=== PATIENT | female | born 1985 | race Caucasian/White ===

== ENCOUNTER → 2016-11-16 | Outpatient (CLI) | payer OTHER ==
[2016-11-16 12:19] LABS: Basophils % (A) 0 %; CH 33.4; CHCM 33.7; Eosinophils # (A) 0.2 k/uL (0-0.7); Eosinophils % (A) 2 %; HCT 31.7 % (34.0-46.0); HDW 2.53; HGB 10.7 gm/dL (11.4-16.0); Luc # (Auto) 0.09; Luc % (Auto) 1; Lymphocytes # (A) 1.4 k/uL (1.0-4.8); Lymphocytes % (A) 12 %; MCH 33.5 pg (25.0-35.0); MCHC 33.7 g/dL (31.0-37.0); MCV 99.6 fL (80.0-100.0); Mean Platelet Volume 8.6; Monocytes # (A) 0.7 k/uL (0-1.0); Monocytes % (A) 6 %; Neutrophils # (A) 9.1 k/uL (1.3-7.7); Neutrophils % (A) 79 %; RBC 3.18 m/uL (3.80-5.40); RDW 12.9 % (11.5-15.5); WBC 11.6 k/uL (3.8-10.6); WBC (Perox) 12.29
[2016-11-17 07:22] LABS: HIV-1/HIV-2 Ab Screen NONREAC (NON REAC)
== END | disposition home or self-care (01) ==
LOC: LABWHC1 10:16
PROVIDERS: ATTEND Midwife
DX: Z36 Encounter for antenatal screening of mother (principal)
CPT/HCPCS: 36415; 82950; 85025; 86780; 87389

== ENCOUNTER 2016-12-03 19:27 | Outpatient (CLI) | payer OTHER ==
[2016-12-03] MEDS ORDERED: ONDANSETRON 4 MG/2 ML VIAL IVP STA (20:15)
[2016-12-03] MEDS: LACTATED RINGERS 1,000 ML IV SCH ×2 (20:30→21:19)
[2016-12-03 20:34] LABS: Appearance,Urine Cloudy (Clear); Bacteria,Urine Rare /hpf; Bilirubin,Urine 1+ (Negative); Glucose,Urine (UA) Negative (Negative); Ketones,Urine 3+ (Negative); Leukocyte Esterase,Urine Moderate (Negative); Mucus,Urine Many /hpf; Nitrite,Urine Negative (Negative); Particle Count 19169; Protein,Urine 2+ (Negative); RBC,Urine 18 /hpf (0-5); Specific Gravity,Urine 1.024 (1.001-1.035); Squamous Epithelial Cell,Urine 17 /hpf (0-4); UA Billing (MACRO vs. MICRO) MICRO; WBC,Urine 28 /hpf (0-5)
== END 2016-12-03 22:00 | disposition home or self-care (01) ==
LOC: FBPOP 19:27
PROVIDERS: ATTEND Obstetrics & Gynecology
DX: O99.89 Other specified diseases and conditions complicating pregnancy, childbirth and the puerperium (principal); R19.7 Diarrhea, unspecified; R11.2 Nausea with vomiting, unspecified; Z3A.30 30 weeks gestation of pregnancy
CPT/HCPCS: 59025; 96360; 96361; 96375; 81001; G0463; J2405; 99214

== ENCOUNTER 2017-02-13 10:46 | Emergency (ER) | payer OTHER ==
[2017-02-13] MEDS ORDERED: SODIUM CHLORIDE 0.9% 500 ML IV ONE (11:03)
--- NOTE | 2017-02-13 11:21 | ED ---
General Adult HPI - General Chief complaint: Vaginal Bleeding Stated complaint: passing clots, post preg Time Seen by Provider: 02/13/17 10:52 Source: patient, RN notes reviewed, old records reviewed Mode of arrival: ambulatory Limitations: no limitations - History of Present Illness Initial comments: This is a 31-year-old female here for evaluation of bleeding. Vaginal bleeding. Patient is a with vaginal delivery less than a week. Patient states she did pass a large blood clot today. No tissue. Patient otherwise has no pain no cramping or feelings of lightheadedness dizziness or weakness. No complications from . - Related Data Home Medications Medication Instructions Recorded Confirmed Vit#84/Iron/FA#1/Dha 1 each PO DAILY 12/03/16 02/13/17 [Prenate Essential Softgel] Ranitidine HCl [Zantac] 150 mg PO BID 12/03/16 02/13/17 Calcium Carbonate [Tums] 500 mg PO QID 01/15/17 02/13/17 Ibuprofen [Motrin] 600 mg PO Q6HR PRN 02/13/17 02/13/17 Allergies Allergy/AdvReac Type Severity Reaction Status Date / Time No Known Allergies Allergy Verified 02/13/17 10:56 Review of Systems ROS Statement: Those systems with pertinent positive or pertinent negative responses have been documented in the HPI. ROS Other: All systems not noted in ROS Statement are negative. Past Medical History Past Medical History: No Reported History History of Any Multi-Drug Resistant Organisms: None Reported Past Surgical History: No Surgical Hx Reported Past Psychological History: No Psychological Hx Reported Smoking Status: Current every day smoker Past Alcohol Use History: None Reported Past Drug Use History: None Reported General Exam Limitations: no limitations General appearance: alert, in no apparent distress Head exam: Present: atraumatic, normocephalic, normal inspection Eye exam: Present: normal appearance, PERRL, EOMI. Absent: scleral icterus, conjunctival injection, periorbital swelling ENT exam: Present: normal exam, mucous membranes moist Neck exam: Present: normal inspection. Absent: tenderness, meningismus, lymphadenopathy Respiratory exam: Present: normal lung sounds bilaterally. Absent: respiratory distress, wheezes, rales, rhonchi, stridor Cardiovascular Exam: Present: regular rate, normal rhythm, normal heart sounds. Absent: systolic murmur, diastolic murmur, rubs, gallop, clicks GI/Abdominal exam: Present: soft, normal bowel sounds. Absent: distended, tenderness, guarding, rebound, rigid Extremities exam: Present: normal inspection, full ROM, normal capillary refill. Absent: tenderness, pedal edema, joint swelling, calf tenderness Back exam: Present: normal inspection Neurological exam: Present: alert, oriented X3, CN II-XII intact Psychiatric exam: Present: normal affect, normal mood Skin exam: Present: warm, dry, intact, normal color. Absent: rash Course Vital Signs 02/13/17 02/13/17 10:54 12:12 Temperature 98.6 F Pulse Rate 101 H 84 Respiratory 16 16 Rate Blood Pressure 125/69 115/61 O2 Sat by Pulse 100 100 Oximetry - Reevaluation(s) Reevaluation #1: 02/13/17 12:28 Patient with no more passing of significant blood or blood clots, no weakness Medical Decision Making - Medical Decision Making 31 female here for evaluation. This patient presents for evaluation of passing blood clot, positive bleeding after , ultrasound is NEGATIVE FOR RETAINED PRODUCTS, HEMOGLOBIN NORMAL. PATIENT'S VITAL SIGNS ARE NORMAL AND STABLE, NOT SYMPTOMATICALLY BE DISCHARGED HOME - Lab Data Result diagrams: 02/13/17 11:30 02/13/17 11:30 Lab Results 02/13/17 02/13/17 02/13/17 Range/Units 11:30 11:30 11:30 WBC 15.5 H (3.8-10.6) k/uL RBC 3.48 L (3.80-5.40) m/uL Hgb 11.6 (11.4-16.0) gm/dL Hct 35.6 (34.0-46.0) % MCV 102.2 H (80.0-100.0) fL MCH 33.4 (25.0-35.0) pg MCHC 32.6 (31.0-37.0) g/dL RDW 14.2 (11.5-15.5) % Plt Count 327 (150-450) k/uL Neutrophils % 77 % Lymphocytes % 15 % Monocytes % 5 % Eosinophils % 2 % Basophils % 0 % Neutrophils # 11.9 H (1.3-7.7) k/uL Lymphocytes # 2.3 (1.0-4.8) k/uL Monocytes # 0.8 (0-1.0) k/uL Eosinophils # 0.2 (0-0.7) k/uL Basophils # 0.1 (0-0.2) k/uL Macrocytosis Slight Sodium 139 (137-145) mmol/L Potassium 4.6 (3.5-5.1) mmol/L Chloride 107 (98-107) mmol/L Carbon Dioxide 25 (22-30) mmol/L Anion Gap 7 mmol/L BUN 9 (7-17) mg/dL Creatinine 0.62 (0.52-1.04) mg/dL Est GFR (MDRD) Af Amer >60 (>60 ml/min/1.73 sqM) Est GFR (MDRD) Non-Af >60 (>60 ml/min/1.73 sqM) Glucose 85 (74-99) mg/dL Calcium 9.7 (8.4-10.2) mg/dL Total Bilirubin 0.5 (0.2-1.3) mg/dL AST 55 H (14-36) U/L ALT 53 H (9-52) U/L Alkaline Phosphatase 120 (38-126) U/L Total Protein 6.8 (6.3-8.2) g/dL Albumin 3.5 (3.5-5.0) g/dL Urine Color Yellow Urine Appearance Clear (Clear) Urine pH 7.5 (5.0-8.0) Ur Specific Lorton 1.008 (1.001-1.035) Urine Protein Negative (Negative) Urine Glucose (UA) Negative (Negative) Urine Ketones Negative (Negative) Urine Blood Large H (Negative) Urine Nitrite Negative (Negative) Urine Bilirubin Negative (Negative) Urine Urobilinogen <2.0 (<2.0) mg/dL Ur Leukocyte Esterase Small H (Negative) Urine RBC 68 H (0-5) /hpf Urine WBC 5 (0-5) /hpf Ur Squamous Epith Cells <1 (0-4) /hpf Urine Mucus Rare H (None) /hpf - Radiology Data Radiology results: report reviewed (Ultrasound negative for acute disease), image reviewed Disposition Clinical Impression: Menorrhagia, Excessive bleeding after vaginal delivery Disposition: HOME SELF-CARE Condition: Good Instructions: Bleeding (ED) Referrals: None,Stated [Primary Care Provider] - 1-2 days
[2017-02-13 11:46] LABS: Basophils # (A) 0.1 k/uL (0-0.2); Basophils % (A) 0 %; CH 34.5; Eosinophils # (A) 0.2 k/uL (0-0.7); Eosinophils % (A) 2 %; HCT 35.6 % (34.0-46.0); HDW 2.47; HGB 11.6 gm/dL (11.4-16.0); Luc # (Auto) 0.27; Luc % (Auto) 2; Lymphocytes # (A) 2.3 k/uL (1.0-4.8); Lymphocytes % (A) 15 %; MCH 33.4 pg (25.0-35.0); MCHC 32.6 g/dL (31.0-37.0); MCV 102.2 fL (80.0-100.0); Macrocytosis Slight; Mean Platelet Volume 7.7; Monocytes # (A) 0.8 k/uL (0-1.0); Monocytes % (A) 5 %; Neutrophils # (A) 11.9 k/uL (1.3-7.7); Neutrophils % (A) 77 %; RBC 3.48 m/uL (3.80-5.40); RDW 14.2 % (11.5-15.5); WBC 15.5 k/uL (3.8-10.6); WBC (Perox) 15.41
[2017-02-13 11:50] LABS: ALT 53 U/L (9-52); AST 55 U/L (14-36); Alkaline Phosphatase 120 U/L (38-126); Anion Gap 7 mmol/L; Blood Urea Nitrogen 9 mg/dL (7-17); Calcium 9.7 mg/dL (8.4-10.2); Carbon Dioxide 25 mmol/L (22-30); Chloride 107 mmol/L (98-107); Glucose 85 mg/dL (74-99); Non-African American GFR(MDRD) >60 (>60 ml/min/1.73 sqM); Potassium 4.6 mmol/L (3.5-5.1); Sodium 139 mmol/L (137-145); Total Bilirubin 0.5 mg/dL (0.2-1.3); Total Protein 6.8 g/dL (6.3-8.2)
[2017-02-13 11:54] LABS: Appearance,Urine Clear (Clear); Bilirubin,Urine Negative (Negative); Glucose,Urine (UA) Negative (Negative); Ketones,Urine Negative (Negative); Leukocyte Esterase,Urine Small (Negative); Mucus,Urine Rare /hpf; Nitrite,Urine Negative (Negative); PH, Urine 7.5 (5.0-8.0); Particle Count 920; Protein,Urine Negative (Negative); RBC,Urine 68 /hpf (0-5); Specific Gravity,Urine 1.008 (1.001-1.035); Squamous Epithelial Cell,Urine <1 /hpf (0-4); UA Billing (MACRO vs. MICRO) MICRO; Urobilinogen,Urine <2.0 mg/dL (<2.0); WBC,Urine 5 /hpf (0-5)
--- NOTE | 2017-02-13 12:21 | US ---
EXAMINATION TYPE: US pelvic complete DATE OF EXAM: 02/13/2017 12:08 PM COMPARISON: NONE CLINICAL HISTORY: retainedProducts. Vaginal bleeding since delivery, passed large blood clot today. V aginal bleeding 02/09/17 TECHNIQUE: Transabdominal (TA) Date of LMP: unknown EXAM MEASUREMENTS: Uterus: 14.9 x 6.5 x 11.7 cm Endometrial Stripe: cm Right Ovary: 3.0 x 2.0 x 1.9 cm Left Ovary: 3.2 x 1.8 x 1.6 cm 1. Uterus: Anteverted increased vascularity noted anteriorly . Uterine myometrium appears to be he terogenous. 2. Endometrium: appears thickened and heterogeneous, small amount of fluid noted within 3. Right Ovary: appears wnl 4. Left Ovary: appears wnl 5. Bilateral Adnexa: wnl 6. Posterior cul-de-sac: wnl IMPRESSION: Uterus is thickened and heterogenous with a small amount of endometrial fluid and hyperva scularity. Retained products of conception difficult to exclude. Correlate clinically.
[2017-02-13 12:33] LABS: INR 0.9 (<1.1); Prothrombin Time 9.4 sec (9.0-12.0)
[2017-02-13 12:40] VITALS: BP 124/73; PULSE 88; RESP 18; TEMP 97.8
[2017-02-13 12:47] LABS: Partial Thromboplastin Time 19.3 sec (22.0-30.0)
== END 2017-02-13 12:41 | disposition home or self-care (01) ==
LOC: EC 10:46
DX: O72.1 Other immediate postpartum hemorrhage (principal); F17.200 Nicotine dependence, unspecified, uncomplicated; Z79.899 Other long term (current) drug therapy
CPT/HCPCS: 36415; 76856; 80053; 81001; 85025; 85610; 85730; 86850; 86900; 86901; 96360; 99284

== ENCOUNTER → 2019-08-21 | Outpatient (CLI) | payer OTHER ==
[2019-08-21 16:17] LABS: Basophils # (A) 0.1 k/uL (0-0.2); Basophils % (A) 1 %; Eosinophils # (A) 0.2 k/uL (0-0.7); Eosinophils % (A) 2 %; HCT 43.7 % (34.0-46.0); HGB 14.3 gm/dL (11.4-16.0); Lymphocytes # (A) 3.3 k/uL (1.0-4.8); Lymphocytes % (A) 35 %; MCH 32.3 pg (25.0-35.0); MCHC 32.8 g/dL (31.0-37.0); MCV 98.6 fL (80.0-100.0); Mean Platelet Volume 6.5; Monocytes # (A) 0.6 k/uL (0-1.0); Monocytes % (A) 7 %; Neutrophils # (A) 5.1 k/uL (1.3-7.7); Neutrophils % (A) 53 %; Platelet Count 314 k/uL (150-450); RBC 4.43 m/uL (3.80-5.40); RDW 11.9 % (11.5-15.5); WBC 9.6 k/uL (3.8-10.6)
[2019-08-22 00:31] LABS: Follicle Stimulating Hormone 4.9 mIU/mL; Luteinizing Hormone 4.2 mIU/mL
== END | disposition home or self-care (01) ==
LOC: LABWHC1 14:49
PROVIDERS: ATTEND Midwife
DX: F39 Unspecified mood [affective] disorder (principal)
CPT/HCPCS: 36415; 82040; 83001; 83002; 84144; 84270; 84403; 84439; 84443; 85025

== ENCOUNTER → 2019-11-02 | Outpatient (CLI) | payer OTHER ==
--- NOTE | 2019-11-02 15:11 | CT ---
EXAMINATION TYPE: CT brain wo/w con DATE OF EXAM: 11/02/2019 COMPARISON: None HISTORY: Headaches and dizziness with multiple traumas over the past years CT DLP: 2072 mGycm Automated Exposure Control for Dose Reduction was Utilized. TECHNIQUE: CT scan of the head is performed with IV contrast.,CT scan of the head is performed withou t and with with IV Contrast, patient injected with 70 mL of Isovue 300. CLINICAL HISTORY: Dizziness and giddiness, headaches COMPARISON: None. FINDINGS: Noncontrast images show no acute intracranial hemorrhage or midline shift. The ventricles and sulci are within normal limits in size. Postcontrast images show no suspicious enhancing intrapa renchymal mass. The globes are intact and the visualized sinuses are clear. Small pineal gland cysts show some peripheral calcification and measures approximately 1 cm in greatest dimension IMPRESSION: Nonspecific findings above.
== END | disposition home or self-care (01) ==
LOC: RADCTMAIN 13:58
PROVIDERS: ATTEND Family Medicine
DX: R42 Dizziness and giddiness (principal)
CPT/HCPCS: 70470; Q9967

== ENCOUNTER 2019-11-27 07:41 | Day surgery (SDC) | payer OTHER ==
[2019-11-25 10:01] VITALS: BMI 31.1
[~2019-11-27 07:41] MED LIST: LACTATED RINGERS 1,000 ML IV SCH; LIDOCAINE 1% 20 ML VIAL (10MG/ML) FOR IV START INTRADERMA PRN
--- NOTE | 2019-11-27 08:01 | P.GSHP ---
History of Present Illness H&P Date: 11/27/19 CHIEF COMPLAINT: Colon screen HISTORY OF PRESENT ILLNESS: The patient is a 34-year-old female who presents for colon screen. Lower endoscopy was offered for further evaluation and management. PAST MEDICAL HISTORY: Please see list. PAST SURGICAL HISTORY: Please see list. MEDICATIONS: Please see list. ALLERGIES: Please see list. SOCIAL HISTORY: No illicit drug use FAMILY HISTORY: No reports of Crohn disease or ulcerative colitis. REVIEW OF ORGAN SYSTEMS: CONSTITUTIONAL: No reports of fevers or chills. PHYSICAL EXAM: VITAL SIGNS: Stable GENERAL: Well-developed pleasant in no acute distress. HEENT: No scleral icterus. Extraocular movements grossly intact. Moist buccal mucosa. NECK: Supple without lymphadenopathy. CHEST: Unlabored respirations. Equal bilateral excursions. CARDIOVASCULAR: Regular rate and rhythm. Distal 2+ pulses. ABDOMEN: Soft, nontender, nondistended. MUSCULOSKELETAL: No clubbing, cyanosis, or edema. ASSESSMENT: 1. Colon screen. PLAN: 1. Recommend proceeding with a lower endoscopy Past Medical History Past Medical History: GERD/Reflux Additional Past Medical History / Comment(s): chronic neck and back pain History of Any Multi-Drug Resistant Organisms: None Reported Past Surgical History: No Surgical Hx Reported Past Anesthesia/Blood Transfusion Reactions: No Reported Reaction Smoking Status: Current every day smoker - Past Family History Mother Family Medical History: Cancer Additional Family Medical History / Comment(s): colon Medications and Allergies Home Medications Medication Instructions Recorded Confirmed Type Loratadine [Claritin] 10 mg PO DAILY 11/25/19 11/25/19 History Omeprazole [PriLOSEC] 20 mg PO DAILY 11/25/19 11/25/19 History Varenicline [Chantix Continuing 1 mg PO DIRECTED 11/25/19 11/25/19 History Pack] tiZANidine [Zanaflex] 4 mg PO BID 11/25/19 11/25/19 History Allergies Allergy/AdvReac Type Severity Reaction Status Date / Time No Known Allergies Allergy Verified 11/25/19 09:54
[2019-11-27 08:35] VITALS: TEMP 97.2
[2019-11-27] MEDS ORDERED: PROPOFOL 10 MG/ML 20 ML VIAL IV ONE (09:00)
[2019-11-27] MEDS ORDERED: LIDOCAINE 1% INJ 10MG/ML (20 ML MDV) ONE (09:00)
--- NOTE | 2019-11-27 09:32 | P.PCN ---
Date of Procedure: 11/27/19 Description of Procedure: PREOPERATIVE DIAGNOSIS: Change in bowel habits Family history colon cancer History of rectal bleeding POSTOPERATIVE DIAGNOSIS: Change in bowel habits Family history colon cancer History of rectal bleeding Internal and external hemorrhoids, grade 3 OPERATION: Colonoscopy to the ileocecal valve and appendiceal orifice. SURGEON: Joslyn Ferguson MD. ANESTHESIA: MAC. INDICATIONS: The patient is a 34-year-old female who presents with change in bowel habits and rectal bleeding. Benefits and risks were described and informed consent was obtained. DESCRIPTION OF PROCEDURE: The patient had undergone Suprep. She had been brought into the operating room and laid in the left lateral decubitus position. After adequate intravenous sedation, the rectum was examined with 2% lidocaine jelly. External hemorrhoids were encountered. The rectal tone was within normal limits. No lesions were palpated in the rectal vault. An Olympus colonoscope was advanced until the ileocecal valve and appendiceal orifice were clearly viewed. The prep was excellent with clear visualization of the mucosal folds. No scattered diverticulosis was encountered. No colonic polyps were found. No evidence of focal colitis was found. Retroflexion of the scope demonstrated grade 3 internal hemorrhoids without active bleeding or inflammation. The colon was desufflated. The patient had tolerated the procedure well. Withdrawal time was over 6 minutes. FINDINGS: Aronchick preparation quality scale 1 (1-5) Internal hemorrhoids, grade 3 External prolapsed hemorrhoids, grade 3 No arteriovenous malformations No adenomatous polyps No focal colitis No scattered diverticulosis RECOMMENDATIONS: Lower endoscopy as needed. Plan - Discharge Summary Discharge Rx Participant: No New Discharge Prescriptions: Continue Varenicline [Chantix Continuing Pack] 1 mg PO DIRECTED tiZANidine [Zanaflex] 4 mg PO BID Omeprazole [PriLOSEC] 20 mg PO DAILY Loratadine [Claritin] 10 mg PO DAILY Discharge Medication List Loratadine [Claritin] 10 mg PO DAILY 11/25/19 [History] Omeprazole [PriLOSEC] 20 mg PO DAILY 11/25/19 [History] Varenicline [Chantix Continuing Pack] 1 mg PO DIRECTED 11/25/19 [History] tiZANidine [Zanaflex] 4 mg PO BID 11/25/19 [History] Follow up Appointment(s)/Referral(s): Joslyn Ferguson MD [STAFF PHYSICIAN] - 12/17/19 Patient Instructions/Handouts: Hemorrhoids (DC) Discharge Disposition: HOME SELF-CARE
[2019-11-27 10:12] VITALS: BP 112/67; PULSE 67; RESP 18
== END 2019-11-27 09:56 | disposition home or self-care (01) ==
LOC: ORWHC2ENDO 07:41
PROVIDERS: ATTEND Surgery Plastic and Reconstructive Surgery
DX: K64.2 Third degree hemorrhoids (principal); K64.4 Residual hemorrhoidal skin tags; K21.9 Gastro-esophageal reflux disease without esophagitis; G89.29 Other chronic pain; M54.2 Cervicalgia; M54.9 Dorsalgia, unspecified; F17.200 Nicotine dependence, unspecified, uncomplicated; Z80.0 Family history of malignant neoplasm of digestive organs; Z79.899 Other long term (current) drug therapy
CPT/HCPCS: 81025; 45378; J2001; J2704

== ENCOUNTER → 2019-12-30 | Outpatient (CLI) | payer OTHER | END | disposition home or self-care (01) | DX: K81.9 Cholecystitis, unspecified (principal) | CPT/HCPCS: 76705 ==

== ENCOUNTER → 2020-04-08 | Day surgery (SDC) | payer OTHER ==
[2020-04-03 15:37] VITALS: BMI 37.3
[~2020-04-08] MED LIST changes: -LIDOCAINE 1% 20 ML VIAL (10MG/ML) FOR IV START INTRADERMA PRN; +LIDOCAINE 1% INJ 10MG/ML (20 ML MDV) ONE; +MIDAZOLAM 2 MG/2 ML VIAL ONE; +PROPOFOL 10 MG/ML 20 ML VIAL IV ONE
[2020-04-08 08:39] VITALS: RESP 16; TEMP 98.4
--- NOTE | 2020-04-08 08:54 | P.GSHP ---
History of Present Illness H&P Date: 04/08/20 CHIEF COMPLAINT: GERD HISTORY OF PRESENT ILLNESS: The patient is a 35-year-old female who presents reports gastroesophageal reflux disease. Upper endoscopy was offered for further evaluation and management. PAST MEDICAL HISTORY: Please see list. PAST SURGICAL HISTORY: Please see list. MEDICATIONS: Please see list. ALLERGIES: Please see list. SOCIAL HISTORY: No illicit drug use FAMILY HISTORY: No reports of Crohn disease or ulcerative colitis. REVIEW OF ORGAN SYSTEMS: CONSTITUTIONAL: No reports of fevers or chills. GI: Denies any blood in stools or constipation. PHYSICAL EXAM: VITAL SIGNS: Stable GENERAL: Well-developed and pleasant in no acute distress. HEENT: No scleral icterus. Extraocular movements grossly intact. Moist buccal mucosa. NECK: Supple without lymphadenopathy. CHEST: Unlabored respirations. Equal bilateral excursions. CARDIOVASCULAR: Regular rate and rhythm. Distal 2+ pulses. ABDOMEN: Soft, nondistended. MUSCULOSKELETAL: No clubbing, cyanosis, or edema. ASSESSMENT: 1. Gastroesophageal reflux disease PLAN: 1. Recommend proceeding with an upper endoscopy Past Medical History Past Medical History: GERD/Reflux Additional Past Medical History / Comment(s): hx heart murmer, irregular bowel movements, fluctuates with constipation/diarrhea,hx frequent UTI's History of Any Multi-Drug Resistant Organisms: None Reported Past Surgical History: No Surgical Hx Reported Additional Past Surgical History / Comment(s): anesthesia to set fx wrist, colonoscopy, Past Anesthesia/Blood Transfusion Reactions: No Reported Reaction Smoking Status: Current every day smoker - Past Family History Mother Family Medical History: No Reported History Medications and Allergies Home Medications Medication Instructions Recorded Confirmed Type Loratadine [Claritin] 10 mg PO DAILY PRN 11/25/19 04/08/20 History Omeprazole [PriLOSEC] 20 mg PO DAILY 11/25/19 04/08/20 History tiZANidine [Zanaflex] 4 mg PO BID PRN 11/25/19 04/08/20 History Allergies Allergy/AdvReac Type Severity Reaction Status Date / Time No Known Allergies Allergy Verified 04/08/20 08:28 Surgical - Exam Vital Signs Temp Pulse Resp BP Pulse Ox 98.4 F 89 16 145/71 99 04/08/20 08:38 04/08/20 08:38 04/08/20 08:38 04/08/20 08:38 04/08/20 08:38
--- NOTE | 2020-04-08 09:14 | P.PCN ---
Date of Procedure: 04/08/20 Description of Procedure: PREOPERATIVE DIAGNOSIS: Gastroesophageal reflux disease. POSTOPERATIVE DIAGNOSIS: Gastritis. Gastroesophageal reflux disease. OPERATION: Esophagogastroduodenoscopy with biopsies along antrum. SURGEON: Joslyn Ferguson MD ANESTHESIA: MAC. INDICATIONS: The patient is a 35-year-old female who presents with a history of reflux disease. Benefits and risks of the procedure were described. Informed consent was obtained. DESCRIPTION: The patient was brought into the endoscopy suite and laid in the left lateral decubitus position. An Olympus gastroscope was passed along the posterior oropharynx down to the distal esophagus where the squamocolumnar junction was encountered at 37 cm from the incisors. The stomach was entered and no bile reflux was found. Additional findings are listed below. Biopsies with cold forceps were obtained of the antrum. The first through third portion of the duodenum was examined and unremarkable. Retroflexion of the scope confirmed Hill grade 2 lower esophageal valve. The squamocolumnar junction demonstrated LA grade B erosive esophagitis. The stomach was desufflated. The patient tolerated the procedure well. FINDINGS: Squamocolumnar junction 37 cm from the incisors. Diaphragmatic hiatus at 37 cm. Hill grade 2 lower esophageal valve. LA grade B erosive esophagitis. No active duodenitis. Chronic gastritis RECOMMENDATIONS: Upper endoscopy as needed. Plan - Discharge Summary New Discharge Prescriptions: Continue tiZANidine [Zanaflex] 4 mg PO BID PRN PRN Reason: Pain Loratadine [Claritin] 10 mg PO DAILY PRN PRN Reason: allergies Discontinued Omeprazole [PriLOSEC] 20 mg PO DAILY Discharge Medication List Loratadine [Claritin] 10 mg PO DAILY PRN 11/25/19 [History] tiZANidine [Zanaflex] 4 mg PO BID PRN 11/25/19 [History] Follow up Appointment(s)/Referral(s): Joslyn Ferguson MD [STAFF PHYSICIAN] - 04/14/20 Patient Instructions/Handouts: Gastritis (DC), Gastroesophageal Reflux Disease (ED), Diet for Stomach Ulcers and Gastritis (ED) Discharge Disposition: HOME SELF-CARE
[2020-04-08 09:32] VITALS: BP 105/71; PULSE 76
== END | disposition home or self-care (01) ==
LOC: ORWHC2ENDO 08:15
PROVIDERS: ATTEND Surgery Plastic and Reconstructive Surgery
DX: K29.50 Unspecified chronic gastritis without bleeding (principal); K21.0 Gastro-esophageal reflux disease with esophagitis; K22.10 Ulcer of esophagus without bleeding; F17.210 Nicotine dependence, cigarettes, uncomplicated; Z79.899 Other long term (current) drug therapy; Z87.440 Personal history of urinary (tract) infections
CPT/HCPCS: 81025; 88305; 43239; J2250; J2001; J2704

== ENCOUNTER 2020-04-11 20:10 | Emergency (ER) | payer OTHER ==
[2020-04-11 20:20] VITALS: RESP 18; TEMP 97.9
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
[2020-04-11 20:56] LABS: Basophils # (A) 0.1 k/uL (0-0.2); Basophils % (A) 1 %; Eosinophils # (A) 0.3 k/uL (0-0.7); Eosinophils % (A) 2 %; HCT 45.5 % (34.0-46.0); HGB 14.4 gm/dL (11.4-16.0); Lymphocytes # (A) 4.4 k/uL (1.0-4.8); Lymphocytes % (A) 31 %; MCHC 31.6 g/dL (31.0-37.0); MCV 98.2 fL (80.0-100.0); Mean Platelet Volume 7.8; Monocytes # (A) 0.7 k/uL (0-1.0); Monocytes % (A) 5 %; Neutrophils # (A) 8.4 k/uL (1.3-7.7); Neutrophils % (A) 59 %; Platelet Count 345 k/uL (150-450); RBC 4.63 m/uL (3.80-5.40); RDW 12.3 % (11.5-15.5); WBC 14.2 k/uL (3.8-10.6)
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
[2020-04-11 21:11] LABS: ALT 27 U/L (4-34); AST 48 U/L (14-36); African American GFR (CKD) >90 (>60 ml/min/1.73 sqM); Albumin 4.3 g/dL (3.5-5.0); Alkaline Phosphatase 67 U/L (38-126); Anion Gap 10 mmol/L; Blood Urea Nitrogen 7 mg/dL (7-17); Carbon Dioxide 19 mmol/L (22-30); Chloride 111 mmol/L (98-107); Glucose 99 mg/dL (74-99); Non-African American GFR(CKD) >90 (>60 ml/min/1.73 sqM); Sodium 140 mmol/L (137-145); Total Bilirubin 0.4 mg/dL (0.2-1.3); Total Protein 7.6 g/dL (6.3-8.2)
[2020-04-11 21:38] LABS: INR 0.9 (<1.2); Partial Thromboplastin Time 22.9 sec (22.0-30.0); Prothrombin Time 9.8 sec (9.0-12.0)
[2020-04-11 21:40] LABS: Appearance,Urine Clear (Clear); Bacteria,Urine Rare /hpf; Bilirubin,Urine Negative (Negative); Blood,Urine Trace (Negative); Color,Urine Colorless; Glucose,Urine (UA) Negative (Negative); Ketones,Urine Negative (Negative); Leukocyte Esterase,Urine Negative (Negative); Nitrite,Urine Negative (Negative); Protein,Urine Negative (Negative); RBC,Urine <1 /hpf (0-5); Specific Gravity,Urine 1.002 (1.001-1.035); Urobilinogen,Urine <2.0 mg/dL (<2.0); WBC,Urine 1 /hpf (0-5)
[2020-04-11 21:45] LABS: Amphetamine Screen,Urine Not Detected (NotDetected); Barbiturate Screen,Urine Not Detected (NotDetected); Benzodiazepines Screen,Urine Not Detected (NotDetected); Cocaine Screen,Urine Not Detected (NotDetected); Methadone Screen, Urine Not Detected (NotDetected); Opiate Screen,Urine Not Detected (NotDetected); Oxycodone Screen, Urine Not Detected (NotDetected); Phencyclidine Screen,Urine Not Detected (NotDetected); Tricyclic Antidepressant,Urine Not Detected (NotDetected); Urn Cannabinoid Scrn Not Detected (NotDetected)
[2020-04-11] MEDS ORDERED: SODIUM CHLORIDE 0.9% 1,000 ML IV ONE (22:15)
[2020-04-11 22:47] VITALS: BP 114/69; PULSE 82
== END 2020-04-12 00:03 | disposition home or self-care (01) ==
LOC: EC 20:10
DX: S80.01XA Contusion of right knee, initial encounter (principal); F10.129 Alcohol abuse with intoxication, unspecified; D72.829 Elevated white blood cell count, unspecified; F17.200 Nicotine dependence, unspecified, uncomplicated; V53.5XXA Driver of pick-up truck or van injured in collision with car, pick-up truck or van in traffic accident, initial encounter; Y92.410 Unspecified street and highway as the place of occurrence of the external cause; Y90.8 Blood alcohol level of 240 mg/100 ml or more
CPT/HCPCS: 36415; 70450; 71045; 72125; 72170; 80053; 80306; 80320; 81001; 81025; 85025; 85610; 85730; 96360; 99285

== ENCOUNTER 2021-06-08 16:02 | Inpatient (IN) | payer MEDICAID, OTHER ==
[2021-06-08] MEDS ORDERED: IBUPROFEN 600 MG TAB PO STA (18:29)
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
[2021-06-08 18:38] LABS: Appearance,Urine Clear (Clear); Bilirubin,Urine Negative (Negative); Blood,Urine Negative (Negative); Color,Urine Yellow; Glucose,Urine (UA) Negative (Negative); Ketones,Urine Trace (Negative); Leukocyte Esterase,Urine Negative (Negative); Nitrite,Urine Negative (Negative); PH, Urine 5.5 (5.0-8.0); Protein,Urine Trace (Negative); Specific Gravity,Urine 1.011 (1.001-1.035); Urobilinogen,Urine <2.0 mg/dL (<2.0)
[2021-06-08 18:49] LABS: Amphetamine Screen,Urine Detected (NotDetected); Cocaine Screen,Urine Not Detected (NotDetected); Opiate Screen,Urine Not Detected (NotDetected); Phencyclidine Screen,Urine Not Detected (NotDetected); Urn Cannabinoid Scrn Detected (NotDetected)
[2021-06-08 18:50] LABS: Barbiturate Screen,Urine Not Detected (NotDetected); Benzodiazepines Screen,Urine Not Detected (NotDetected); Methadone Screen, Urine Not Detected (NotDetected); Oxycodone Screen, Urine Not Detected (NotDetected); Tricyclic Antidepressant,Urine Not Detected (NotDetected)
[2021-06-08] MEDS ORDERED: MAG HYDROX/AL HYDROX/SIMETH 30 ML CUP PO PRN (23:51)
[2021-06-08] MEDS ORDERED: ACETAMINOPHEN TAB 325 MG TAB PO PRN (23:51)
[2021-06-08] MEDS ORDERED: LORazepam 1 MG TAB PO PRN (23:51)
[2021-06-08] MEDS ORDERED: MAGNESIUM HYDROXIDE 2,400 MG/10 ML CUP PO PRN (23:51)
[2021-06-08] MEDS ORDERED: LORazepam 2 MG/ML INJ IM PRN (23:54)
[2021-06-08] MEDS ORDERED: HALOPERIDOL LACTATE 5 MG/ML 1 ML VIAL IM PRN (23:54)
[2021-06-09 01:00] VITALS: RESP 15
[2021-06-09 07:55] LABS: Basophils % (A) 1 %; Eosinophils # (A) 0.2 k/uL (0-0.7); Eosinophils % (A) 3 %; HCT 52.9 % (34.0-46.0); HGB 17.6 gm/dL (11.4-16.0); Lymphocytes % (A) 37 %; MCH 33.5 pg (25.0-35.0); MCHC 33.2 g/dL (31.0-37.0); MCV 100.8 fL (80.0-100.0); Monocytes # (A) 0.7 k/uL (0-1.0); Monocytes % (A) 9 %; Neutrophils % (A) 48 %; Platelet Count 307 k/uL (150-450); RBC 5.25 m/uL (3.80-5.40); RDW 12.9 % (11.5-15.5); WBC 8.3 k/uL (3.8-10.6)
[2021-06-09 07:58] LABS: ALT 16 U/L (4-34); AST 25 U/L (14-36); Acetaminophen <10.0 ug/mL; African American GFR (CKD) >90 (>60 ml/min/1.73 sqM); Albumin 4.3 g/dL (3.5-5.0); Alkaline Phosphatase 94 U/L (38-126); Anion Gap 9 mmol/L; Blood Urea Nitrogen 10 mg/dL (7-17); Calcium 9.7 mg/dL (8.4-10.2); Carbon Dioxide 24 mmol/L (22-30); Chloride 106 mmol/L (98-107); Glucose 93 mg/dL (74-99); Non-African American GFR(CKD) >90 (>60 ml/min/1.73 sqM); Potassium 4.1 mmol/L (3.5-5.1); Salicylate <1.0 mg/dL; Sodium 139 mmol/L (137-145); Total Bilirubin 0.7 mg/dL (0.2-1.3); Total Protein 7.2 g/dL (6.3-8.2)
[2021-06-09] MEDS: PANTOPRAZOLE 40 MG TABLET PO SCH ×2 (08:36→16:55)
[2021-06-09] MEDS: NICOTINE 14MG/24HR PATCH TRANSDERM SCH (08:36)
[2021-06-09 12:19] LABS: Chol/HDL Ratio 3.95; Cholesterol 170 mg/dL (0-200); LDL Cholesterol,Calculated 102.4 mg/dL (0.0-131.0)
--- NOTE | 2021-06-09 12:58 | P.HP ---
Psychiatric H&P - . H&P Date: 06/09/21 History & Physical: Allergies Allergy/AdvReac Type Severity Reaction Status Date / Time No Known Allergies Allergy Verified 06/09/21 01:03 Vital Signs Temp 98.2 F 06/09/21 00:47 Pulse 85 06/09/21 00:47 Resp 15 06/09/21 00:47 BP 128/83 06/09/21 00:47 Pulse Ox 96 06/09/21 00:47 Intake & Output 06/08/21 06/09/21 06/09/21 18:59 06:59 18:59 Weight 72.121 kg 69.91 kg Laboratory Last Values WBC 8.3 k/uL (3.8-10.6) 06/09/21 07:07 RBC 5.25 m/uL (3.80-5.40) 06/09/21 07:07 Hgb 17.6 gm/dL (11.4-16.0) H 06/09/21 07:07 Hct 52.9 % (34.0-46.0) H 06/09/21 07:07 MCV 100.8 fL (80.0-100.0) H 06/09/21 07:07 MCH 33.5 pg (25.0-35.0) 06/09/21 07:07 MCHC 33.2 g/dL (31.0-37.0) 06/09/21 07:07 RDW 12.9 % (11.5-15.5) 06/09/21 07:07 Plt Count 307 k/uL (150-450) 06/09/21 07:07 MPV 8.0 06/09/21 07:07 Neutrophils % 48 % 06/09/21 07:07 Lymphocytes % 37 % 06/09/21 07:07 Monocytes % 9 % 06/09/21 07:07 Eosinophils % 3 % 06/09/21 07:07 Basophils % 1 % 06/09/21 07:07 Neutrophils # 4.0 k/uL (1.3-7.7) 06/09/21 07:07 Lymphocytes # 3.0 k/uL (1.0-4.8) 06/09/21 07:07 Monocytes # 0.7 k/uL (0-1.0) 06/09/21 07:07 Eosinophils # 0.2 k/uL (0-0.7) 06/09/21 07:07 Basophils # 0.0 k/uL (0-0.2) 06/09/21 07:07 Sodium 139 mmol/L (137-145) 06/09/21 07:10 Potassium 4.1 mmol/L (3.5-5.1) 06/09/21 07:10 Chloride 106 mmol/L (98-107) 06/09/21 07:10 Carbon Dioxide 24 mmol/L (22-30) 06/09/21 07:10 Anion Gap 9 mmol/L 06/09/21 07:10 BUN 10 mg/dL (7-17) 06/09/21 07:10 Creatinine 0.79 mg/dL (0.52-1.04) 06/09/21 07:10 Est GFR (CKD-EPI)AfAm >90 (>60 ml/min/1.73 sqM) 06/09/21 07:10 Est GFR (CKD-EPI)NonAf >90 (>60 ml/min/1.73 sqM) 06/09/21 07:10 Glucose 93 mg/dL (74-99) 06/09/21 07:10 Calcium 9.7 mg/dL (8.4-10.2) 06/09/21 07:10 Total Bilirubin 0.7 mg/dL (0.2-1.3) 06/09/21 07:10 AST 25 U/L (14-36) 06/09/21 07:10 ALT 16 U/L (4-34) 06/09/21 07:10 Alkaline Phosphatase 94 U/L (38-126) 06/09/21 07:10 Total Protein 7.2 g/dL (6.3-8.2) 06/09/21 07:10 Albumin 4.3 g/dL (3.5-5.0) 06/09/21 07:10 Triglycerides 123.0 mg/dL (0.0-149.0) 06/09/21 07:10 Cholesterol 170 mg/dL (0-200) 06/09/21 07:10 LDL Cholesterol, Calc 102.4 mg/dL (0.0-131.0) 06/09/21 07:10 VLDL Cholesterol, Calc 24.60 mg/dL (5.00-40.00) 06/09/21 07:10 HDL Cholesterol 43.0 mg/dL (40.0-60.0) 06/09/21 07:10 Cholesterol/HDL Ratio 3.95 06/09/21 07:10 TSH 2.100 mIU/L (0.465-4.680) 06/09/21 07:10 Urine Color Yellow 06/08/21 18: Urine Appearance Clear (Clear) 06/08/21 18: Urine pH 5.5 (5.0-8.0) 06/08/21 18: Ur Specific [place] 1.011 (1.001-1.035) 06/08/21 18:27 Urine Protein Trace (Negative) H 06/08/21 18: Urine Glucose (UA) Negative (Negative) 06/08/21 18: Urine Ketones Trace (Negative) H 06/08/21 18: Urine Blood Negative (Negative) 06/08/21 18: Urine Nitrite Negative (Negative) 06/08/21 18: Urine Bilirubin Negative (Negative) 06/08/21 18: Urine Urobilinogen <2.0 mg/dL (<2.0) 06/08/21 18:27 Ur Leukocyte Esterase Negative (Negative) 06/08/21 18:27 Urine HCG, Qual Not Detected (Not Detectd) 06/08/21 18: Salicylates <1.0 mg/dL 06/09/21 07:10 Urine Opiates Screen Not Detected (NotDetected) 06/08/21 18:27 Ur Oxycodone Screen Not Detected (NotDetected) 06/08/21 18:27 Urine Methadone Screen Not Detected (NotDetected) 06/08/21 18:27 Ur Propoxyphene Screen Not Detected (NotDetected) 06/08/21 18:27 Acetaminophen <10.0 ug/mL 06/09/21 07:10 Ur Barbiturates Screen Not Detected (NotDetected) 06/08/21 18:27 U Tricyclic Antidepress Not Detected (NotDetected) 06/08/21 18:27 Ur Phencyclidine Scrn Not Detected (NotDetected) 06/08/21 18:27 Ur Amphetamines Screen Detected (NotDetected) H 06/08/21 18:27 U Methamphetamines Scrn Detected (NotDetected) H 06/08/21 18:27 U Benzodiazepines Scrn Not Detected (NotDetected) 06/08/21 18:27 Urine Cocaine Screen Not Detected (NotDetected) 06/08/21 18:27 U Marijuana (THC) Screen Detected (NotDetected) H 06/08/21 18:27 Coronavirus (PCR) Not Detected (Not Detectd) 06/08/21 23:19 06/09/21 12:57 IDENTIFYING DATA: Patient is a legally , unemployed, 36-year-old female admitted for psychosis. HPI: Patient presented to the hospital and a petition by the police after endorsing significant paranoia and psychosis. As previous report, the patient came to the hospital because of "Human trafficking. Patient stated that she feels as if she is unable to trust anyone at this time and is fearful for her children." The patient was noted to be quite tearful in the emergency department and very paranoid and afraid. The patient did test positive for amphetamines and methamphetamines as well as marijuana. As per petition, the patient was also wandering into traffic. Upon admission to the psychiatric unit, the patient continues to display mood lability, paranoia, and disorganization. Initially, the patient was approached by this provider with a nurse school office assistant present but the patient expressed that she did not want the nurse present as she "don't like her." Staff report that the patient was quite agitated over the phone and slammed the phone and was directed to calm down. When trying to engage in the psychiatric interview, the patient is grossly disorganized and is unable to provide a clear history of the events leading up to this hospitalization. Furthermore, the patient continues to express strong fear that human trafficking is going on. When asked for more details, the patient is unable to provide any except that "I feel like it is happening." The patient does express she does not feel safe on the unit. She expresses a strong distrust of others on the unit. Interview was terminated as the patient was unable to provide any clear history and was not able to cooperate appropriately. PAST PSYCHIATRIC HISTORY: Unable to determine any psychiatric history. As per review of the patient's chart, there appears to be no prior psychotropic medications in her list of home medications. The patient has no history of previous admissions to the psychiatric unit. PMH: Past Medical History: GERD/Reflux Additional Past Medical History / Comment(s): hx heart murmer, irregular bowel movements, fluctuates with constipation/diarrhea,hx frequent UTI's History of Any Multi-Drug Resistant Organisms: None Reported Past Surgical History: No Surgical Hx Reported Additional Past Surgical History / Comment(s): anesthesia to set fx wrist, colonoscopy, Past Anesthesia/Blood Transfusion Reactions: No Reported Reaction Past Psychological History: Anxiety, Depression Smoking Status: Current every day smoker Past Alcohol Use History: Occasional Past Drug Use History: Marijuana, Methamphetamine ALLERGIES: NO KNOWN DRUG ALLERGIES CHEMICAL DEPENDENCY HISTORY: The patient admits to methamphetamine use. She states that she used it "pretty often." She smokes it and snorts it. Patient also uses marijuana daily and drinks couple times per week. FAMILY PSYCHIATRIC/SUBSTANCE USE HISTORY: Unable to obtain SOCIAL HISTORY: Unable to obtain patient's social history. Reportedly, the patient has children and they're currently staying with their father. MENTAL STATUS EXAM: General Appearance: Patient appears to be stated age is alert, difficult to direct, and intermittently cooperative. Poor hygiene and grooming. Appears disheveled. Behavior: Psychomotor activity is elevated. Patient's concentration pacing and moving around the room. Speech: Patient's speech is nonsensical, pressured, spontaneous, with normal rate and volume. Mood/Affect: Patient reports their mood is very scared, affect is congruent and paranoid. Suicidality/Homicidality: Unable to appropriately assess. Perceptions: Unable to properly assess. Though content/process: Very delusional and disorganized. Memory and concentration: Grossly poor. Judgment and insight: poor STRENGTHS/WEAKNESSES: Unable to identify patient's strengths at this time. Weaknesses the patient engages in heavy substance abuse. INTELLECT: Unable to appropriately assess. IMPRESSIONS: Psychosis, unspecified Rule out methamphetamine-induced psychotic disorder Rule out schizoaffective disorder versus schizophrenia versus bipolar disorder PLAN: -Patient is admitted under involuntary status to [facility] for stabilization of psychiatric symptoms and safety. A second certification was completed and along with petition will be filed for court. The patient presents with imminent risk of harm to self and/or others whether intentionally or unintentionally due to the severity of her psychosis. She is also noted on petition to wander into traffic. -Medications : Will start patient on Risperdal 0.5 mg by mouth twice a day for mood stabilization/psychosis. -Ativan and Haldol PRN for agitation/aggression -Patient was counselled on substance abuse and desired to cut back on use -Patient was informed of the risks, benefits and side effects of the medication and patient verbally consented to taking the medications. -Internal Medicine consult to perform medical evaluation and physical. -NRT - nicotine patch -SW on board for discharge planning. Encourage patient to participate in groups to work on coping skills. 06/09/21 12:58
[2021-06-09 15:00] LABS: Hemoglobin A1C 5.1 % (4.0-6.0)
[2021-06-09] MEDS: CYCLOBENZAPRINE 5 MG TAB PO PRN (18:22)
--- NOTE | 2021-06-09 18:51 | P.CON ---
Consult Note - . Consult date: 06/09/21 Assessment/Plan:: Medical consultation: Management of GERD/reflux, chronic back pain, history of frequent urinary tract infections HPI: The patient presented to the hospital with petition from police department which endorse significant paranoia and psychosis. Patient [place]. Patient continued to endorse out through the interview that she is afraid of being human trafficked with her friend and the safety of her children. Patient admits to polysubstance abuse with marijuana and methamphetamines, would like to seek help from inpatient psychiatric care. Patient endorsed mild back pain, cyclobenzaprine ordered as needed 3 times a day for muscle spasms. Vital signs and diagnostic testing reviewed from a medical standpoint patient is medically cleared once psychiatry treatment plan is in place for discharge Physical exam Constitutional: Awake and alert and appropriate for age in no acute signs of distress HEENT: Normocephalic, nontraumatic, PERRLA, supple, no JVD noted Heart: Regular rate and rhythm, S1-S2, no murmurs, clicks rubs or gallops noted Lungs: Anterior posterior lung carlson clear to auscultation I lateral Extremities: Skin warm and dry, normal coloration, normal temperature, skin intact, distal pulses +2 Psychiatric: Guarded, answer questions with few word sentences Assessment: Psychosis unspecified Polysubstance abuse Chronic back pain GERD/reflux History of urinary tract infections Full code Plan: Vital signs and diagnostic testing results reviewed Continue medications from psychiatric treatment plan Continue home medications From a medical standpoint patient medically cleared, once patient is cleared from psychiatric services follow-up with primary care 1 to 2 days
[2021-06-09] MEDS: risperiDONE 0.5 MG TAB PO SCH (20:02)
[2021-06-10] MEDS: PANTOPRAZOLE 40 MG TABLET PO SCH ×2 (08:37→17:38)
[2021-06-10] MEDS: NICOTINE 14MG/24HR PATCH TRANSDERM SCH (08:37)
[2021-06-10] MEDS: risperiDONE 0.5 MG TAB PO SCH (08:37)
--- NOTE | 2021-06-10 11:11 | P.PN ---
Progress Note - Text Progress Note Date: 06/10/21 Interval History: Patient was seen resting in bed and was directable and agreeable to speak with radio script writer in the office. The patient reports that she feels "much better today and go." The patient does acknowledge that she was feeling extremely paranoid yesterday and fearful that people were trying to set traffic her. The patient does admit that she has been using methamphetamines but states that she has not used it in the last 3 days. She is currently not reporting any auditory or visual hallucinations. She continues to endorse fear of sex trafficking but is not as forthcoming or intense with this fear as she was yesterday. She is not reporting any significant side effects of medications and has been adherent. She reports/securing her sleep or her appetite. She denies any suicidal or homicidal ideation, intention, and/or plan. Patient was informed that she was petitioned and certified and we will need to go through the mental health legal process, she is currently admitted. Mental Status Exam: General Appearance: Patient appears to be stated age is alert, directable, and cooperative. Behavior: Patient is calmly seated without any agitated behavior. Psychomotor activity has calmed down today and is normal. Speech: Patient's speech is fluent and nonpressured. Spontaneous, normal rate, tone, and volume. Mood/Affect: Mood is improving mildly, affect is congruent and constricted. Suicidality/Homicidality: Patient denies having any suicidal or homicidal ideation intent or plan. Perceptions: Patient denies any visual hallucinations and denies any auditory hallucinations Though content/process: Patient continues endorse some delusional thought content. Thought process appears to be much more linear and goal-directed today. Memory and concentration: AOX3, grossly intact for the purposes of this session Judgment and insight: Improving mildly Vital Signs Temp 98.2 F 06/09/21 00:47 Pulse 85 06/09/21 00:47 Resp 15 06/09/21 00:47 BP 128/83 06/09/21 00:47 Pulse Ox 96 06/09/21 00:47 Laboratory Results - Last 24 Hours 06/09/21 06/09/21 07:07 07:[address] Glu mg/dL 100 Hemoglobin A1c 5.1 Triglycerides 123.0 Cholesterol 170 LDL Cholesterol, Calc 102.4 VLDL Cholesterol, Calc 24.60 HDL Cholesterol 43.0 Cholesterol/HDL Ratio 3.95 Assessment Psychosis, unspecified Rule out methamphetamine-induced psychotic disorder Rule out schizoaffective disorder versus schizophrenia versus bipolar disorder Plan: -Patient continues to meet criteria for inpatient psychiatric admission for sym ptom stabilization and safety. The patient was petitioned and certified. -Medications: Increase Risperdal to 1 mg by mouth twice a day for psychosis. -When necessary Ativan and Haldol for agitation/aggression. -NRT - nicotine patch -SW on board for discharge planning. Encouraged the patient to participate in milieu.
[2021-06-10 14:22] LABS: C. trachomatis,PCR Negative (Neg,Equiv); Chlamydia trachomatis Source Urine; N. gonorrhoeae,PCR Negative (Neg,Equiv); Neisseria Source Urine
[2021-06-10] MEDS: CYCLOBENZAPRINE 5 MG TAB PO PRN (16:01)
[2021-06-10] MEDS: risperiDONE 1 MG TAB PO SCH (20:37)
[2021-06-11 06:32] VITALS: BP 128/74; PULSE 65; TEMP 97.9
[2021-06-11] MEDS: NICOTINE 14MG/24HR PATCH TRANSDERM SCH (08:12)
[2021-06-11] MEDS: PANTOPRAZOLE 40 MG TABLET PO SCH (08:12)
[2021-06-11] MEDS: risperiDONE 1 MG TAB PO SCH (08:12)
--- NOTE | 2021-06-11 11:48 | P.DS ---
Providers Date of admission: 06/08/21 23:41 Expected date of discharge: 06/11/21 Attending physician: Dipak Castro MD Consults: 06/09/21 08:03 Consult Physician Routine Consulting Provider: Calderon Camara Consult Reason/Comments: history and physical Do you want consulting provider notified?: Already Contacted Primary care physician: Calderon Camara - Discharge Diagnosis(es) (1) Methamphetamine-induced psychotic disorder Current Visit: Yes Status: Acute Priority: High (2) Nicotine dependence Current Visit: Yes Status: Chronic Priority: Medium Hospital Course: Admission HPI: "Patient is a legally , unemployed, 36-year-old female admitted for psychosis. Patient presented to the hospital and a petition by the police after endorsing significant paranoia and psychosis. As previous report, the patient came to the hospital because of "Human trafficking. Patient stated that she feels as if she is unable to trust anyone at this time and is fearful for her children." The patient was noted to be quite tearful in the emergency department and very paranoid and afraid. The patient did test positive for amphetamines and meth amphetamines as well as marijuana. As per petition, the patient was also wandering into traffic. Upon admission to the psychiatric unit, the patient continues to display mood lability, paranoia, and disorganization. Initially, the patient was approached by this provider with a nurse tree doctor present but the patient expressed that she did not want the nurse present as she "don't like her." Staff report that the patient was quite agitated over the phone and slammed the phone and was directed to calm down. When trying to engage in the psychiatric interview, the patient is grossly disorganized and is unable to provide a clear history of the events leading up to this hospitalization. Furthermore, the patient continues to express strong fear that human trafficking is going on. When asked for more details, the patient is unable to provide any except that "I feel like it is happening." The patient does express she does not feel safe on the unit. She expresses a strong distrust of others on the unit. Interview was terminated as the patient was unable to provide any clear history and was not able to cooperate appropriately. Unable to determine any psychiatric history. As per review of the patient's chart, there appears to be no prior psychotropic medications in her list of home medications. The patient has no history of previous admissions to the psychiatric unit." Hospital course: Upon admission to the unit patient was initially presenting as very psychotic and paranoid, believing that people are trying to sex traffic her. She did require much redirection in the use of when necessary medications to calm her down. Eventually, the patient was agreeable to commence treatment with Risperdal. The following day, the patient had a significant reduction in her psychotic symptoms. She did mention mild paranoia but developed improved insight and judgment, understanding that this is a psychotic symptom likely related to her methamphetamine use. The patient was adherent with her Risperdal. Eventually the Risperdal was titrated to a final dose of 1 mg twice a day. On the day of discharge, the patient is not opening any suicidal or homicidal ideation, intention, and/or plan. She is not reporting any auditory or visual hallucinations. She is not reporting any paranoia or other delusions. The patient has been in adherent with medications and is not endorsing any significant side effects at this time. The patient does express understanding that it was methamphetamines that contributed to her episode of psychosis. The patient was constantly, worrying all substances including alcohol, marijuana, and especially with amphetamines. Prior to discharge, family meeting will be arranged by social media community manager to answer any questions and ensure safety. Mental status exam: General Appearance: Patient appears to be stated age is alert, pleasant, and cooperative. Patient is in no acute distress and has fair hygiene and grooming. Behavior: Patient is calmly seated without any agitated behavior. Speech: Patient's speech is fluent and nonpressured. Mood/Affect: Patient reports their mood is "I am much more clear again", affect is congruent and euthymic. Suicidality/Homicidality: Patient denies having any suicidal or homicidal ideation intent or plan. Perceptions: Patient denies any auditory or visual hallucinations. Though content/process: There is no evidence of any delusional thought content and thought process is linear and goal-directed. Patient is future oriented. Memory and concentration: AOX3, grossly intact for the purposes of this session. Can spell "WORLD" backwards correctly. Judgment and insight: Improved with guarded prognosis Vital Signs Temp 97.9 F 06/11/21 06:29 Pulse 65 06/11/21 06:29 Resp 15 06/11/21 06:29 BP 128/74 06/11/21 06:29 Pulse Ox 96 06/09/21 00:47 Impression: Acute psychosis, likely security methamphetamine use Plan: -Continue with discharge today as patient has improved and stabilized psychiatrically and is not currently an imminent threat to self and/or others. Patient will remain at chronically elevated risk for harm to self and/or others due to her impulsivity and polysubstance abuse. -Continue medications: Risperdal 1 mg by mouth twice a day for psychosis Habitrol nicotine replacement patches -Patient was counseled on the need for medication compliance and appropriate follow-up at mental health and also primary care for medical issues. Patient verbalized understanding and agreed. -Social work to arrange for and conduct family meeting to ensure safety upon discharge and answer any questions/concerns. Social work also to arrange for patients follow up appointments with CM for psychiatric care along with follow up with primary care provider. -Patient counseled on abstaining from recreational drugs and marijuana and alcohol. Was informed/educated on the adverse effects on their physical and mental health. Patient verbally agreed and understood. Patient was offered substance abuse treatment however declined at this time. -Patient was instructed to return to the hospital or seek immediate medical care if their psychiatric or medical symptoms do worsen or reoccur. -Psychoeducation and supportive therapy provided to patient. Risks and benefits of pharmacological treatment versus the risks and benefits of nontreatment w eight and discussed. Informed consent discussion held. Common side effects of psychotropics discussed such as, but not limited to headache, GI disturbance, sexual dysfunction, movement disorders, sedation, and orthostatic hypotension. Life threatening and blackbox warnings of prescribed medications also discussed. Potential risks of operating a vehicle or heavy machinery discussed with patient at length. Advised on importance of compliance and a reliable and responsible manner. Patient advised to review FDA consumer labeling of all medications prior to taking. Patient verbalized understanding of potential risks, and agrees with current treatment plan. Patient advised to medically contact physician/emergency personnel if any acute changes in condition occur. Laboratory Results WBC 8.3 k/uL (3.8-10.6) 06/09/21 07:07 RBC 5.25 m/uL (3.80-5.40) 06/09/21 07:07 Hgb 17.6 gm/dL (11.4-16.0) H 06/09/21 07:07 Hct 52.9 % (34.0-46.0) H 06/09/21 07:07 MCV 100.8 fL (80.0-100.0) H 06/09/21 07:07 MCH 33.5 pg (25.0-35.0) 06/09/21 07:07 MCHC 33.2 g/dL (31.0-37.0) 06/09/21 07:07 RDW 12.9 % (11.5-15.5) 06/09/21 07:07 Plt Count 307 k/uL (150-450) 06/09/21 07:07 MPV 8.0 06/09/21 07:07 Neutrophils % 48 % 06/09/21 07:07 Lymphocytes % 37 % 06/09/21 07:07 Monocytes % 9 % 06/09/21 07:07 Eosinophils % 3 % 06/09/21 07:07 Basophils % 1 % 06/09/21 07:07 Neutrophils # 4.0 k/uL (1.3-7.7) 06/09/21 07:07 Lymphocytes # 3.0 k/uL (1.0-4.8) 06/09/21 07:07 Monocytes # 0.7 k/uL (0-1.0) 06/09/21 07:07 Eosinophils # 0.2 k/uL (0-0.7) 06/09/21 07:07 Basophils # 0.0 k/uL (0-0.2) 06/09/21 07:07 Sodium 139 mmol/L (137-145) 06/09/21 07:10 Potassium 4.1 mmol/L (3.5-5.1) 06/09/21 07:10 Chloride 106 mmol/L (98-107) 06/09/21 07:10 Carbon Dioxide 24 mmol/L (22-30) 06/09/21 07:10 Anion Gap 9 mmol/L 06/09/21 07:10 BUN 10 mg/dL (7-17) 06/09/21 07:10 Creatinine 0.79 mg/dL (0.52-1.04) 06/09/21 07:10 Est GFR (CKD-EPI)AfAm >90 (>60 ml/min/1.73 sqM) 06/09/21 07:10 Est GFR (CKD-EPI)NonAf >90 (>60 ml/min/1.73 sqM) 06/09/21 07:10 Glucose 93 mg/dL (74-99) 06/09/21 07:[address] Glu mg/dL 100 06/09/21 07:07 Hemoglobin A1c 5.1 % (4.0-6.0) 06/09/21 07:07 Calcium 9.7 mg/dL (8.4-10.2) 06/09/21 07:10 Total Bilirubin 0.7 mg/dL (0.2-1.3) 06/09/21 07:10 AST 25 U/L (14-36) 06/09/21 07:10 ALT 16 U/L (4-34) 06/09/21 07:10 Alkaline Phosphatase 94 U/L (38-126) 06/09/21 07:10 Total Protein 7.2 g/dL (6.3-8.2) 06/09/21 07:10 Albumin 4.3 g/dL (3.5-5.0) 06/09/21 07:10 Triglycerides 123.0 mg/dL (0.0-149.0) 06/09/21 07:10 Cholesterol 170 mg/dL (0-200) 06/09/21 07:10 LDL Cholesterol, Calc 102.4 mg/dL (0.0-131.0) 06/09/21 07:10 VLDL Cholesterol, Calc 24.60 mg/dL (5.00-40.00) 06/09/21 07:10 HDL Cholesterol 43.0 mg/dL (40.0-60.0) 06/09/21 07:10 Cholesterol/HDL Ratio 3.95 06/09/21 07:10 TSH 2.100 mIU/L (0.465-4.680) 06/09/21 07:10 Urine Color Yellow 06/08/21 18:27 Urine Appearance Clear (Clear) 06/08/21 18:27 Urine pH 5.5 (5.0-8.0) 06/08/21 18:27 Ur Specific [place] 1.011 (1.001-1.035) 06/08/21 18:27 Urine Protein Trace (Negative) H 06/08/21 18:27 Urine Glucose (UA) Negative (Negative) 06/08/21 18:27 Urine Ketones Trace (Negative) H 06/08/21 18:27 Urine Blood Negative (Negative) 06/08/21 18:27 Urine Nitrite Negative (Negative) 06/08/21 18:27 Urine Bilirubin Negative (Negative) 06/08/21 18:27 Urine Urobilinogen <2.0 mg/dL (<2.0) 06/08/21 18:27 Ur Leukocyte Esterase Negative (Negative) 06/08/21 18:27 Urine HCG, Qual Not Detected (Not Detectd) 06/08/21 18:27 Salicylates <1.0 mg/dL 06/09/21 07:10 Urine Opiates Screen Not Detected (NotDetected) 06/08/21 18:27 Ur Oxycodone Screen Not Detected (NotDetected) 06/08/21 18:27 Urine Methadone Screen Not Detected (NotDetected) 06/08/21 18:27 Ur Propoxyphene Screen Not Detected (NotDetected) 06/08/21 18:27 Acetaminophen <10.0 ug/mL 06/09/21 07:10 Ur Barbiturates Screen Not Detected (NotDetected) 06/08/21 18:27 U Tricyclic Antidepress Not Detected (NotDetected) 06/08/21 18:27 Ur Phencyclidine Scrn Not Detected (NotDetected) 06/08/21 18:27 Ur Amphetamines Screen Detected (NotDetected) H 06/08/21 18:27 U Methamphetamines Scrn Detected (NotDetected) H 06/08/21 18:27 U Benzodiazepines Scrn Not Detected (NotDetected) 06/08/21 18:27 Urine Cocaine Screen Not Detected (NotDetected) 06/08/21 18:27 U Marijuana (THC) Screen Detected (NotDetected) H 06/08/21 18:27 Chlamydia Source Urine 06/08/21 18:22 Chlamydia DNA (PCR) Negative (Neg,Equiv) 06/08/21 18:22 Coronavirus (PCR) Not Detected (Not Detectd) 06/08/21 23:19 N. gonorrhoeae Source Urine 06/08/21 18:22 N.gonorrhoeae DNA Probe Negative (Neg,Equiv) 06/08/21 18:22 Allergies Allergy/AdvReac Type Severity Reaction Status Date / Time No Known Allergies Allergy Verified 06/09/21 01:03 Patient Condition at Discharge: Stable Plan - Discharge Summary New Discharge Prescriptions: New Nicotine 14Mg/24Hr Patch [Habitrol] 1 patch TRANSDERM DAILY 30 Days patch Pantoprazole [Protonix] 40 mg PO AC-BID 30 Days tablet. risperiDONE [RisperDAL] 1 mg PO BID 30 Days tab Discharge Medication List Nicotine 14Mg/24Hr Patch [Habitrol] 1 patch TRANSDERM DAILY 30 Days patch 06/11/21 [Rx] Pantoprazole [Protonix] 40 mg PO AC-BID 30 Days tablet. 06/11/21 [Rx] risperiDONE [RisperDAL] 1 mg PO BID 30 Days tab 06/11/21 [Rx] Follow up Appointment(s)/Referral(s): [facility] [Outside] - 06/15/21 3:30 pm (Intake with [facility] @ [facility]) Calderon Camara MD [Primary Care Provider] - 1-2 days Patient Instructions/Handouts: Mood Disorders (DC), Depression (DC), Methamphetamine Abuse (DC) Activity/Diet/Wound Care/Special Instructions: Activity and diet as tolerated. Avoid the use of street drugs and alcohol. Take all medications as prescribed. When you are in need of refills on your medications please contact your medical provider and/or outpatient psychiatrist to have this done. Please go to scheduled outpatient appointment for aftercare treatment. If symptoms return or become worse, call the crisis line at and/or go to the nearest emergency room for evaluation. Discharge Disposition: HOME SELF-CARE
== END 2021-06-11 14:50 | disposition home or self-care (01) | DRG 897 ==
LOC: EC 16:02 → 3MHU 23:41
PROVIDERS: ADMIT Psychiatry & Neurology Psychiatry; ATTEND Psychiatry & Neurology Psychiatry
DX: F15.159 Other stimulant abuse with stimulant-induced psychotic disorder, unspecified (principal); F12.10 Cannabis abuse, uncomplicated; F17.210 Nicotine dependence, cigarettes, uncomplicated; F32.9 Major depressive disorder, single episode, unspecified; F41.9 Anxiety disorder, unspecified; G89.29 Other chronic pain; K21.9 Gastro-esophageal reflux disease without esophagitis; Z59.0 Homelessness; Z79.899 Other long term (current) drug therapy; Z87.440 Personal history of urinary (tract) infections; Z86.79 Personal history of other diseases of the circulatory system
CPT/HCPCS: 80053; 80061; 80143; 80179; 80306; 81003; 81025; 82075; 83036; 84443; 85025; 87491; 87591; 87635; 99285

== ENCOUNTER → 2021-06-25 | Outpatient (CLI) | payer OTHER ==
--- NOTE | 2021-06-25 13:08 | XR ---
EXAMINATION TYPE: XR lumbar spine 2 or 3V DATE OF EXAM: 06/25/2021 CLINICAL HISTORY: pain TECHNIQUE: Three views of the lumbar spine are submitted. COMPARISON: None. FINDINGS: There are 5 lumbar type vertebral bodies identified. The lumbar spine shows satisfactory alignment w ithout evidence of acute fracture or dislocation. Vertebral body heights are within normal limits. Disc spaces are within normal limits. The overlying soft tissue appears unremarkable. IMPRESSION: No acute fracture or dislocation is seen in the lumbar spine. ICD 10 NO FRACTURE, INITIAL EVALUATION
--- NOTE | 2021-06-25 13:09 | XR ---
EXAMINATION TYPE: XR knee complete RT DATE OF EXAM: 06/25/2021 CLINICAL HISTORY: pain TECHNIQUE: Three views of the right knee are obtained. COMPARISON: None. FINDINGS: There is no acute fracture/dislocation. The tri-compartment joint spaces appear within no rmal limits. The overlying soft tissue appears unremarkable. IMPRESSION: There is no acute fracture or dislocation.ICD 10 NO FRACTURE, INITIAL EVALUATION
== END | disposition home or self-care (01) ==
LOC: RADXRMAIN 12:31
PROVIDERS: ATTEND Nurse Practitioner Family
DX: M54.5 Low back pain (principal); M25.561 Pain in right knee
CPT/HCPCS: 72100

== ENCOUNTER → 2021-07-05 | Outpatient (CLI) | payer OTHER ==
[2021-07-05 20:31] LABS: Basophils # (A) 0.06 X 10*3/uL (0.00-0.10); Basophils % (A) 0.6 %; Eosinophils # (A) 0.31 X 10*3/uL (0.04-0.35); Eosinophils % (A) 3.3 %; HCT 43.6 % (37.2-46.3); Lymphocytes % (A) 29.8 %; MCH 32.2 pg (27.0-32.0); MCHC 32.1 g/dL (32.0-37.0); MCV 100.2 fL (80.0-97.0); Mean Platelet Volume 11.2 fL (9.5-12.2); Monocytes # (A) 1.17 X 10*3/uL (0.20-1.00); Monocytes % (A) 12.5 %; Neutrophils # (A) 4.96 X 10*3/uL (1.80-7.70); Neutrophils % (A) 52.8 %; Platelet Count 284 X 10*3/uL (140-440); RBC 4.35 X 10*6/uL (4.10-5.20); RDW 12.1 % (11.5-14.5); WBC 9.39 X 10*3/uL (4.50-10.00)
[2021-07-05 21:57] LABS: African American GFR (CKD) 110.7 (60.0-200.0); Albumin 4.1 g/dL (3.80-4.90); Albumin/Globulin Ratio 1.78 (1.60-3.17); Anion Gap 6.8 mmol/L (4.00-12.00); Calcium 9.1 mg/dL (8.7-10.3); Carbon Dioxide 25.2 mmol/L (21.6-31.8); Globulin 2.3 g/dL (1.6-3.3); Non-African American GFR(CKD) 95.5 (60.0-200.0); Potassium 4.3 mmol/L (3.5-5.5); Total Bilirubin 0.3 mg/dL (0.2-1.2); Total Protein 6.4 g/dL (6.2-8.2)
[2021-07-05 22:04] LABS: Luteinizing Hormone 4.1 mIU/mL
[2021-07-05 22:05] LABS: Estradiol 43.1 pg/mL; Follicle Stimulating Hormone 5.5 mIU/mL
[2021-07-05 22:13] LABS: T4, Free (Free Thyroxine) 0.9 ng/dL (0.80-1.80)
[2021-07-05 22:17] LABS: Hemoglobin A1C 5.7 % (4.0-6.0)
[2021-07-07 00:32] LABS: Hepatitis A Antibody IgM Non-Reactive (Non-Reactive); Hepatitis B Core IgM Non-Reactive (Non-Reactive); Hepatitis B Surface Antigen Non-Reactive (Non-Reactive); Hepatitis C IgG Antibody Non-Reactive (Non-Reactive)
[2021-07-07 16:41] LABS: Folate, Serum >24.0 ng/mL
== END | disposition home or self-care (01) ==
LOC: LABWHC1 12:54
PROVIDERS: ATTEND Internal Medicine
DX: O92.6 Galactorrhea (principal); D64.9 Anemia, unspecified; R63.5 Abnormal weight gain; R53.82 Chronic fatigue, unspecified; R94.5 Abnormal results of liver function studies
CPT/HCPCS: 36415; 80053; 80074; 82607; 82670; 82746; 83001; 83002; 83036; 83970; 84439; 84443; 84481; 85025